=== PATIENT | male | born 1990 | race Caucasian/White ===

== ENCOUNTER 2016-11-23 08:38 | Emergency (ER) | payer SELFPAY ==
[2016-11-23 08:52] VITALS: BP 124/73
[2016-11-23] MEDS ORDERED: Ketorolac 60 MG/2 ML SDV IM ONE (08:58)
--- NOTE | 2016-11-23 09:03 | EDM.PDOC ---
ED HPI GENERAL MEDICAL PROBLEM - General Chief Complaint: Abdominal Pain Stated Complaint: ADM Time Seen by Provider: 11/23/16 08:46 - History of Present Illness INITIAL COMMENTS - FREE TEXT/NARRATIVE: HISTORY AND PHYSICAL: History of present illness: The patient is a healthy 26 y/o who was involved with fire Department training exercises and yesterday was doing an exercise in which he was pulling a rope and doing squatting-like movements in order to pull up a ladder. He states this was approximately 25 pounds and while he was doing this motion he felt a "ripping/tearing-like sensation" in his lower abdominal area radiating to his groin bilaterally. He says that he rested for a while it seemed to be improved and that he continue doing activities and it was never as sharp as when it first started but it has been dull and aching since that time. The patient has had no systemic complaints of fever chills nausea vomiting or urinary complaints. He has no pain in his groin or testicles and no swelling in those areas have been identified. He says that he did not take any medication for the discomfort nor did he ice the area. 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 He currently states that the aching pain in his lower abdomen that radiates to the groin is still present but again he has had no systemic complaints no back pain no neuro changes in his extremities and no weakness. He says when he is sitting or going from lying to sitting he feels more discomfort and he also feels that when he goes into a squatting position. He has not noticed any bruising in the areas either. Review of systems: As per history of present illness and below otherwise all systems reviewed and negative. Past medical history: As per history of present illness and as reviewed below otherwise noncontributory. Surgical history: As per history of present illness and as reviewed below otherwise noncontributory. Social history: No reported history of drug or alcohol abuse. Family history: As per history of present illness and as reviewed below otherwise noncontributory. Physical exam: General: Well-developed well-nourished male who moves easily in ED without distress. Vital signs have been noted by me HEENT: Atraumatic, normocephalic, negative for conjunctival pallor or scleral icterus, mucous membranes moist, throat clear, neck supple, nontender, trachea midline. Lungs: Clear to auscultation, breath sounds equal bilaterally, chest nontender. Heart: S1S2, regular rate and rhythm no overt murmurs. Abdomen: Soft, nondistended, nontender. Negative for masses or hepatosplenomegaly. Negative for costovertebral tenderness. On visual inspection of the abdomen there is no evidence of any swelling ecchymosis or visible abnormalities. The abdomen is completely nontender to palpation and I cannot elicit any tenderness when palpating the abdominal muscle insertions into the pelvis. There is no specific groin tenderness. Pelvis: Stable nontender. Genitourinary: No hernial defects or masses are appreciated on supine exam in there is no inguinal adenopathy swelling or defects in the muscle architecture in this area. Rectal: Deferred. Extremities: Atraumatic, negative for cords or calf pain. Neurovascular unremarkable. There is no discrete tenderness at flexion of the hip both passively and actively and there are no palpable bony deformities throughout the extremities. Neuro: Awake, alert, oriented. Cranial nerves II through XII unremarkable. Cerebellum unremarkable. Motor and sensory unremarkable throughout. Exam nonfocal. Diagnostics: [] Therapeutics: Toradol Impression: abdominal muscle strain Definitive disposition and diagnosis as appropriate pending reevaluation and review of above. Abdominal Pain Score (Numeric/FACES): 1 - Related Data Allergies Allergy/AdvReac Type Severity Reaction Status Date / Time No Known Allergies Allergy Verified 11/23/16 08:46 Home Meds: Home Meds . [No Known Home Meds] 11/23/16 [History] Past Medical History - Past Health History Medical/Surgical History: Denies Medical/Surgical History Social & Family History - Family History Family Medical History: Noncontributory ED ROS GENERAL - Review of Systems Review Of Systems: ROS reveals no pertinent complaints other than HPI. ED EXAM, GENERAL - Physical Exam Exam: See Below (See dictation) Course - Vital Signs Last Recorded V/S: Last Vital Signs Temp 36.6 C 11/23/16 08:49 Pulse 73 11/23/16 08:49 Resp 12 11/23/16 08:49 BP 124/73 11/23/16 08:49 Pulse Ox 97 11/23/16 08:49 - Orders/Labs/Meds Orders: Active Orders 24 hr Category Date Time Status Ketorolac [Toradol] Med 11/23/16 08:58 Once 60 mg IM ONETIME ONE Departure - Departure Time of Disposition: 09:04 Disposition: Home, Self-Care 01 Condition: good Clinical Impression: Strain of abdominal muscle Qualifiers: Encounter type: initial encounter Qualified Code(s): S39.011A - Strain of muscle, fascia and tendon of abdomen, initial encounter - Discharge Information Forms: ED Department Discharge Additional Instructions: The following information is given to patients seen in the emergency department who are being discharged to home. This information is to outline your options for follow-up care. We provide all patients seen in our emergency department with a follow-up referral. The need for follow-up, as well as the timing and circumstances, are variable depending upon the specifics of your emergency department visit. If you don't have a primary care physician on staff, we will provide you with a referral. We always advise you to contact your personal physician following an emergency department visit to inform them of the circumstance of the visit and for follow-up with them and/or the need for any referrals to a consulting specialist. The emergency department will also refer you to a specialist when appropriate. This referral assures that you have the opportunity for followup care with a specialist. All of these measure are taken in an effort to provide you with optimal care, which includes your followup. Under all circumstances we always encourage you to contact your private physician who remains a resource for coordinating your care. When calling for followup care, please make the office aware that this follow-up is from your recent emergency room visit. If for any reason you are refused follow-up, please contact the [facility] emergency department at and ask to speak to the emergency department charge nurse. [facility] Primary care- Internal Medicine and Family [address] [address] Please try to rest the area for at least be more aware of your body motions during certain exercises as we talked. Use ice to areas of discomfort after activities and use medications as prescribed in needed. Please followup with her clinic doctor next few days and return to ER as needed and as discussed - My Orders Last 24 Hours: My Active Orders 11/23/16 08:58 Ketorolac [Toradol] 60 mg IM ONETIME ONE - Assessment/Plan Last 24 Hours: My Active Orders 11/23/16 08:58 Ketorolac [Toradol] 60 mg IM ONETIME ONE
== END 2016-11-23 09:31 | disposition home or self-care (01) ==
LOC: MW.ED 08:38
DX: S39.011A Strain of muscle, fascia and tendon of abdomen, initial encounter (principal); X50.0XXA Overexertion from strenuous movement or load, initial encounter
CPT/HCPCS: 96372; 99283; J1885

== ENCOUNTER 2018-08-20 15:07 | Emergency (ER) | payer OTHER ==
[2018-08-20 15:26] VITALS: BP 142/90
[2018-08-20] MEDS ORDERED: Tetracaine HCl/PF 0.5% 4 ML Bottle EYEBOTH ONE (15:32)
--- NOTE | 2018-08-20 15:34 | EDM.PDOC ---
ED HPI GENERAL MEDICAL PROBLEM - General Chief Complaint: Eye Problems Stated Complaint: EYE INJURY Time Seen by Provider: 08/20/18 15:33 Source of Information: Reports: Patient History Limitations: Reports: No Limitations - History of Present Illness INITIAL COMMENTS - FREE TEXT/NARRATIVE: HISTORY AND PHYSICAL: History of present illness: Patient is a 27-year-old male here with complaint of right eye irritation. He states it started today, has been burning and having tearing. He does wear contacts and put a new pair in this morning. He denies any injury or trauma to the eye. He denies fevers, chills, headache, vomiting, diarrhea. He is otherwise in his usual state of good health with no other complaints at this time. Review of systems: As per history of present illness and below otherwise all systems reviewed and negative. Past medical history: As per history of present illness and as reviewed below otherwise noncontributory. Surgical history: As per history of present illness and as reviewed below otherwise noncontributory. Social history: No reported history of drug or alcohol abuse. Family history: As per history of present illness and as reviewed below otherwise noncontributory. Physical exam: General: Patient sitting comfortably in no acute distress and nontoxic appearing HEENT: Right eye is injected with tearing. There is a small area of increased uptake on woodslamp exam with fluorescein stain at the 12:00 position to the iris. Atraumatic, normocephalic, pupils reactive, negative for conjunctival pallor or scleral icterus, mucous membranes moist, throat clear, neck supple, nontender, trachea midline. No meningeal signs. Lungs: Clear to auscultation, breath sounds equal bilaterally, chest nontender. Heart: S1S2, regular, negative for clicks, rubs, or overt murmur. Abdomen: Soft, nondistended, nontender. Negative for masses or hepatosplenomegaly. Negative for costovertebral tenderness. Pelvis: Stable nontender. Genitourinary: Deferred. Rectal: Deferred. Extremities: Atraumatic, negative for cords or calf pain. Neurovascular unremarkable. Neuro: Awake, alert, oriented. Cranial nerves II through XII unremarkable. Cerebellum unremarkable. Motor and sensory unremarkable throughout. Exam nonfocal. Notes: Diagnostics: Woodslamp exam Therapeutics: Tetracaine ophthalmic Prescriptions: Erythromycin ointment Impression: Corneal abrasion Plan: 1. Apply ointment as instructed. Do not wear contacts until resolved. 2. Follow up with primary care provider 3. Return to ED as needed as discussed Definitive disposition and diagnosis as appropriate pending reevaluation and review of above. - Related Data Allergies Allergy/AdvReac Type Severity Reaction Status Date / Time No Known Allergies Allergy Verified 08/20/18 15:23 Home Meds: Home Meds Erythromycin Base [Erythromycin 0.5% Ophth Oint] 1 applic EYERT BID #1 tube 05/28 [Rx] Past Medical History - Past Health History Medical/Surgical History: Denies Medical/Surgical History - Infectious Disease History Infectious Disease History: Reports: None Social & Family History - Family History Family Medical History: Noncontributory - Tobacco Use Smoking Status *Q: Current Every Day Smoker Years of Tobacco use: 3 Packs/Tins Daily: 1 - Caffeine Use Caffeine Use: Reports: Energy Drinks - Recreational Drug Use Recreational Drug Use: No ED ROS GENERAL - Review of Systems Review Of Systems: ROS reveals no pertinent complaints other than HPI. ED EXAM GENERAL W FULL EYE - Physical Exam Exam: See Below (see dictation) Course - Vital Signs Last Recorded V/S: Last Vital Signs Temp 97.8 F 08/20/18 15:24 Pulse 89 08/20/18 15:24 Resp 16 08/20/18 15:24 BP 142/90 H 08/20/18 15:24 Pulse Ox 97 08/20/18 15:24 - Orders/Labs/Meds Meds: Medications Discontinued Medications Generic Name Dose Route Start Last Admin Trade Name Freq PRN Reason Stop Dose Admin Tetracaine HCl 1 ml 08/20/18 15:32 Tetracaine 0.5% Steri-Unit Danette EYEBOTH 08/20/18 15:33 ASDIRECTED ONE Departure - Departure Time of Disposition: 15:48 Disposition: Home, Self-Care 01 Condition: Good Clinical Impression: Corneal abrasion - Discharge Information Prescriptions: Erythromycin Base [Erythromycin 0.5% Ophth Oint] 1 applic EYERT BID #1 tube Forms: ED Department Discharge Additional Instructions: The following information is given to patients seen in the emergency department who are being discharged to home. This information is to outline your options for follow-up care. We provide all patients seen in our emergency department with a follow-up referral. The need for follow-up, as well as the timing and circumstances, are variable depending upon the specifics of your emergency department visit. If you don't have a primary care physician on staff, we will provide you with a referral. We always advise you to contact your personal physician following an emergency department visit to inform them of the circumstance of the visit and for follow-up with them and/or the need for any referrals to a consulting specialist. The emergency department will also refer you to a specialist when appropriate. This referral assures that you have the opportunity for follow-up care with a specialist. All of these measure are taken in an effort to provide you with optimal care, which includes your follow-up. Under all circumstances we always encourage you to contact your private physician who remains a resource for coordinating your care. When calling for follow-up care, please make the office aware that this follow-up is from your recent emergency room visit. If for any reason you are refused follow-up, please contact the [facility] Emergency Department at and asked to speak to the emergency department charge nurse. [facility] [address] [place] [id number] [address] 1. Apply ointment as instructed. Do not wear contacts until resolved. 2. Follow up with primary care provider 3. Return to ED as needed as discussed
== END 2018-08-20 16:26 | disposition home or self-care (01) ==
LOC: MW.ED 15:07
DX: S05.01XA Injury of conjunctiva and corneal abrasion without foreign body, right eye, initial encounter (principal); F17.210 Nicotine dependence, cigarettes, uncomplicated; X58.XXXA Exposure to other specified factors, initial encounter
CPT/HCPCS: 99283

== ENCOUNTER 2020-02-07 22:37 | Emergency (ER) | payer OTHER ==
[2020-02-07] MEDS ORDERED: Diazepam 5 MG Tab PO ONE (22:45)
[2020-02-07] MEDS ORDERED: Ketorolac 30 MG/ML SDV IVPUSH ONE (22:45)
[2020-02-07] MEDS ORDERED: Sodium Chloride 0.9% 10 ML Syringe FLUSH PRN (22:46)
[2020-02-07] MEDS ORDERED: Sodium Chloride 0.9% 2.5 ML Syringe FLUSH PRN (22:46)
[2020-02-07] MEDS ORDERED: Sodium Chloride 0.9% 1,000 ML IV ONE (22:46)
--- NOTE | 2020-02-07 22:50 | EDM.PDOC ---
ED HPI GENERAL MEDICAL PROBLEM - General Chief Complaint: Genitourinary Problem Stated Complaint: ARRIVED BY EMS Time Seen by Provider: 02/07/20 22:50 - History of Present Illness INITIAL COMMENTS - FREE TEXT/NARRATIVE: History of present illness: [] She had a sudden pain in the left back that radiates now to the left hypogastrium and around to his abdomen. It does not radiate the testicle. It is severe and constant. He says it is associated with muscle spasm. He had a hard back workout today in the gym. He is otherwise healthy. He has a history of a kidney stone when he was 18. He does not have nausea vomiting or d iaphoresis. Review of systems: As per history of present illness and below otherwise all systems reviewed and negative. Past medical history: As per history of present illness and as reviewed below otherwise noncontributory. Surgical history: As per history of present illness and as reviewed below otherwise noncontributory. Social history: No reported history of drug or alcohol abuse. Family history: As per history of present illness and as reviewed below otherwise noncontributory. Physical exam: Constitutional - well developed, well-nourished and in no acute distress HEENT - normocephalic, no evidence of trauma - external nose and mouth normal - no mass in neck and no JVD - mucosae moist EYES - full EOM, PERRL, no icterus - no evidence of inflammation, injection, or drainage Respiratory - no respiratory distress, equal bilateral expansion, lungs clear to auscultation and no abnormal lung sounds Cardiovascular - Regular Rhythm with S1 and S2 appreciated and no murmur, gallop or rub. Peripheral pulses symmetrically normal in all four extremities GI - abdomen soft without distension or organomegaly - normal bowel sounds - no guard or rebound Musculoskeletal actively has some tenderness in the posterior midline of the lower lumbar spine. Straight leg raise is negative. There is no swelling and no palpable muscle spasm at that site. Have any obvious active sign of grimace or face changes consistent with any severe exacerbation of pain. Is concerning for possible visceral cause of his pain. No gross deformity of long bones or joints - no tenderness, swelling or edema Neurologic - Alert and oriented times four - CN II-XII grossly intact - motor sensory and coordination symmetrically normal Psychiatric - appropriate mood and affect with normal thought content Hematologic - No petechiae or purpura - mucosa appropriate color and sclera not pale - normal nail bed color and refill Integument - no rash or evidence of trauma - normal turgor Diagnostics: [] Therapeutics: [] Impression: [] Plan: [] Definitive disposition and diagnosis as appropriate pending reevaluation and review of above. left back Pain Score (Numeric/FACES): 8 - Related Data Allergies Allergy/AdvReac Type Severity Reaction Status Date / Time No Known Allergies Allergy Verified 02/07/20 22:54 Home Meds: Home Meds Escitalopram [Lexapro] 10 mg PO DAILY 02/07/20 [History] diazePAM [Valium] 5 mg PO TID PRN #15 tab 02/07/20 [Rx] lisinopriL [Lisinopril] 5 mg PO DAILY 02/07/20 [History] methylPREDNISolone [Medrol Dose Pack] 4 mg PO DAILY #21 dospk 02/07/20 [Rx] Past Medical History - Past Health History Medical/Surgical History: Denies Medical/Surgical History - Infectious Disease History Infectious Disease History: Reports: None Social & Family History - Family History Family Medical History: Noncontributory - Caffeine Use Caffeine Use: Reports: Energy Drinks ED ROS GENERAL - Review of Systems Review Of Systems: Comprehensive ROS is negative, except as noted in HPI. ED EXAM, GENERAL - Physical Exam Exam: See Below Free Text/Narrative:: My physical exam as in the HPI Course - Vital Signs Text/Narrative:: Patient improved and rapidly in department Last Recorded V/S: Last Vital Signs Temp 96.9 F 02/07/20 22:50 Pulse 96 02/07/20 22:50 Resp 20 02/07/20 22:50 BP 124/73 02/07/20 22:50 Pulse Ox 96 02/07/20 22:50 - Orders/Labs/Meds Orders: Active Orders 24 hr Category Date Time Status Sodium Chloride 0.9% [Saline Flush] Med 02/07/20 22:46 Active 10 ml FLUSH ASDIRECTED PRN Sodium Chloride 0.9% [Saline Flush] Med 02/07/20 22:46 Active 2.5 ml FLUSH ASDIRECTED PRN Saline Lock Insert [OM.PC] Stat Oth 02/07/20 22:46 Ordered Medication Orders Sodium Chloride (Saline Flush) 10 ml FLUSH ASDIRECTED PRN PRN Reason: Keep Vein Open Sodium Chloride (Saline Flush) 2.5 ml FLUSH ASDIRECTED PRN PRN Reason: Keep Vein Open Labs: Laboratory Tests 02/07/20 02/07/20 02/07/20 Range/Units 22:40 22:45 22:45 WBC 8.38 (4.0-11.0) K/uL RBC 4.39 L (4.50-5.90) M/uL Hgb 13.0 (13.0-17.0) g/dL Hct 39.4 (38.0-50.0) % MCV 89.7 (80.0-98.0) fL MCH 29.6 (27.0-32.0) pg MCHC 33.0 (31.0-37.0) g/dL RDW Std Deviation 43.3 (28.0-62.0) fl RDW Coeff of Dg 13 (11.0-15.0) % Plt Count 286 (150-400) K/uL MPV 9.20 (7.40-12.00) fL Neut % (Auto) 48.7 (48.0-80.0) % Lymph % (Auto) 41.8 H (16.0-40.0) % [place] % (Auto) 7.5 (0.0-15.0) % Eos % (Auto) 1.8 (0.0-7.0) % Baso % (Auto) 0.2 (0.0-1.5) % Neut # (Auto) 4.1 (1.4-5.7) K/uL Lymph # (Auto) 3.5 H (0.6-2.4) K/uL [place] # (Auto) 0.6 (0.0-0.8) K/uL Eos # (Auto) 0.2 (0.0-0.7) K/uL Baso # (Auto) 0.0 (0.0-0.1) K/uL Nucleated RBC % 0.0 /100WBC Nucleated RBCs # 0 K/uL Sodium 140 (136-148) mmol/L Potassium 3.5 (3.5-5.1) mmol/L Chloride 103 (98-107) mmol/L Carbon Dioxide 26.7 (21.0-32.0) mmol/L BUN 14 (7.0-18.0) mg/dL Creatinine 1.3 (0.8-1.3) mg/dL Est Cr Clr Drug Dosing 90.10 mL/min Estimated GFR (MDRD) > 60.0 ml/min Glucose 87 (74-106) mg/dL Calcium 8.7 (8.5-10.1) mg/dL Urine Color YELLOW Urine Appearance CLEAR Urine pH 6.5 (5.0-8.0) Ur Specific [place] 1.020 (1.001-1.035) Urine Protein NEGATIVE (NEGATIVE) mg/dL Urine Glucose (UA) NEGATIVE (NEGATIVE) mg/dL Urine Ketones NEGATIVE (NEGATIVE) mg/dL Urine Occult Blood NEGATIVE (NEGATIVE) Urine Nitrite NEGATIVE (NEGATIVE) Urine Bilirubin NEGATIVE (NEGATIVE) Urine Urobilinogen 0.2 (<2.0) EU/dL Ur Leukocyte Esterase NEGATIVE (NEGATIVE) Meds: Medications Generic Name Dose Route Start Last Admin Trade Name Freq PRN Reason Stop Dose Admin Sodium Chloride 10 ml 02/07/20 22:46 Saline Flush FLUSH ASDIRECTED PRN Keep Vein Open Sodium Chloride 2.5 ml 02/07/20 22:46 Saline Flush FLUSH ASDIRECTED PRN Keep Vein Open Discontinued Medications Generic Name Dose Route Start Last Admin Trade Name Freq PRN Reason Stop Dose Admin Diazepam 5 mg 02/07/20 22:45 02/07/20 22:56 Valium. PO 02/07/20 22:46 5 mg ONETIME ONE Administration Sodium Chloride 1,000 mls @ 999 mls/hr 02/07/20 22:46 02/07/20 22:54 Normal Saline IV 02/07/20 23:46 999 mls/hr .BOLUS ONE Administration Ketorolac Tromethamine 15 mg 02/07/20 22:45 02/07/20 22:54 Toradol IVPUSH 02/07/20 22:46 15 mg ONETIME ONE Administration Departure - Departure Time of Disposition: 23:47 Disposition: Home, Self-Care 01 Condition: Good Clinical Impression: Strain of lumbar paraspinal muscle - Discharge Information Prescriptions: methylPREDNISolone [Medrol Dose Pack] 4 mg PO DAILY #21 dospk diazePAM [Valium] 5 mg PO TID PRN #15 tab PRN Reason: Headache Instructions: Lumbar Sprain Referrals: PCP,None [Ordering Only Provider] - Forms: ED Department Discharge Additional Instructions: The following information is given to patients seen in the emergency department who are being discharged to home. This information is to outline your options for follow-up care. We provide all patients seen in our emergency department with a follow-up referral. The need for follow-up, as well as the timing and circumstances, are variable depending upon the specifics of your emergency department visit. If you don't have a primary care physician on staff, we will provide you with a referral. We always advise you to contact your personal physician following an emergency department visit to inform them of the circumstance of the visit and for follow-up with them and/or the need for any referrals to a consulting specialist. The emergency department will also refer you to a specialist when appropriate. This referral assures that you have the opportunity for follow-up care with a specialist. All of these measure are taken in an effort to provide you with optimal care, which includes your follow-up. Under all circumstances we always encourage you to contact your private physician who remains a resource for coordinating your care. When calling for follow-up care, please make the office aware that this follow-up is from your recent emergency room visit. If for any reason you are refused follow-up, please contact the [facility] Emergency Department at and asked to speak to the emergency department charge nurse. [facility] Professional Building [address] [place] [address], [address] [place] [address] [facility] - Primary [facility] [address] [place] [id number] [address] Sepsis Event Note (ED) - Focused Exam Vital Signs: Vital Signs Temp Pulse Resp BP Pulse Ox 02/07/20 22:50 96.9 F 96 20 124/73 96 - My Orders Last 24 Hours: My Active Orders 02/07/20 22:46 Sodium Chloride 0.9% [Saline Flush] 10 ml FLUSH ASDIRECTED PRN Sodium Chloride 0.9% [Saline Flush] 2.5 ml FLUSH ASDIRECTED PRN Saline Lock Insert [OM.PC] Stat - Assessment/Plan Last 24 Hours: My Active Orders 02/07/20 22:46 Sodium Chloride 0.9% [Saline Flush] 10 ml FLUSH ASDIRECTED PRN Sodium Chloride 0.9% [Saline Flush] 2.5 ml FLUSH ASDIRECTED PRN Saline Lock Insert [OM.PC] Stat
[2020-02-07 23:17] LABS: BLOOD UREA NITROGEN,BUN 14 mg/dL (7.0-18.0); CARBON DIOXIDE,CO2 26.7 mmol/L (21.0-32.0); CHLORIDE,CL 103 mmol/L (98-107); GLUCOSE RANDOM 87 mg/dL (74-106); POTASSIUM,K 3.5 mmol/L (3.5-5.1); SODIUM,NA 140 mmol/L (136-148)
[2020-02-08 00:24] VITALS: BP 125/58; PULSE 66
== END 2020-02-08 00:26 | disposition home or self-care (01) ==
LOC: MW.ED 22:37
DX: S39.012A Strain of muscle, fascia and tendon of lower back, initial encounter (principal); Z79.899 Other long term (current) drug therapy; X58.XXXA Exposure to other specified factors, initial encounter
CPT/HCPCS: 36415; 80048; 81003; 85025; 96374; 99284; A9270; J1885; J7030

== ENCOUNTER 2021-07-13 15:42 | Emergency (ER) | payer OTHER ==
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
[2021-07-13] MEDS ORDERED: Diphtheria,Pertussis(Acell),Tetanus Vaccine 0.5 ML Syringe IM ONE (18:00)
[2021-07-13 18:27] VITALS: BP 121/61; PULSE 77
== END 2021-07-13 18:16 | disposition home or self-care (01) ==
LOC: MW.ED 15:42
DX: T33.011A Superficial frostbite of right ear, initial encounter (principal); I10 Essential (primary) hypertension; Z23 Encounter for immunization; Z79.899 Other long term (current) drug therapy; Z72.0 Tobacco use; X31.XXXA Exposure to excessive natural cold, initial encounter
CPT/HCPCS: 90471; 90715; 99282

== ENCOUNTER 2021-07-22 23:02 | Emergency (ER) | payer OTHER ==
[2021-07-23 00:21] VITALS: BP 121/60; PULSE 89
== END 2021-07-23 00:22 | disposition home or self-care (01) ==
LOC: MW.ED 23:02
DX: S80.12XA Contusion of left lower leg, initial encounter (principal); I10 Essential (primary) hypertension; Z79.899 Other long term (current) drug therapy; W00.0XXA Fall on same level due to ice and snow, initial encounter
CPT/HCPCS: 73590-26-LT; 73590-LT; 99283-25

== ENCOUNTER 2021-12-09 09:51 | Emergency (ER) | payer OTHER ==
[2021-12-09] MEDS ORDERED: Ibuprofen 600 MG Tab PO ONE (10:07)
[2021-12-09] MEDS ORDERED: Acetaminophen 500 MG Tab PO ONE (10:07)
[2021-12-09 11:16] VITALS: BP 126/80; PULSE 80
== END 2021-12-09 11:17 | disposition home or self-care (01) ==
LOC: MW.ED 09:51
DX: S93.401A Sprain of unspecified ligament of right ankle, initial encounter (principal); I10 Essential (primary) hypertension; Z79.899 Other long term (current) drug therapy; W18.40XA Slipping, tripping and stumbling without falling, unspecified, initial encounter
CPT/HCPCS: 73610; 99283; A9270; 99282

== ENCOUNTER 2023-04-26 06:18 | Emergency (ER) | payer OTHER ==
[2023-04-26] MEDS ORDERED: Ibuprofen 600 MG Tab PO ONE (06:35)
[2023-04-26 08:07] VITALS: BP 136/78; PULSE 84
== END 2023-04-26 08:06 | disposition home or self-care (01) ==
LOC: MW.ED 06:18
DX: S93.401A Sprain of unspecified ligament of right ankle, initial encounter (principal); S93.601A Unspecified sprain of right foot, initial encounter; I10 Essential (primary) hypertension; Z79.899 Other long term (current) drug therapy; X50.1XXA Overexertion from prolonged static or awkward postures, initial encounter
CPT/HCPCS: 73610; 73620; 99283; A9270

== ENCOUNTER 2024-05-27 06:16 | Emergency (ER) | payer OTHER ==
[2024-05-27 06:26] VITALS: BP 133/86; PULSE 89
[2024-05-27] MEDS: Tetracaine HCl/PF 0.5% 4 ML Bottle EYEBOTH ONE (06:26)
[2024-05-27] MEDS: Fluorescein 1 MG Ophth Strip EYEBOTH ONE (06:40)
[2024-05-27] MEDS: Fluorescein 1 MG Ophth Strip EYELF ONE (06:44)
[2024-05-27] MEDS: Fluorescein 1 MG Ophth Strip ONE (06:44)
== END 2024-05-27 06:54 | disposition home or self-care (01) ==
LOC: MW.ED 06:16
DX: H10.32 Unspecified acute conjunctivitis, left eye (principal); I10 Essential (primary) hypertension
CPT/HCPCS: 99283; J3490

== ENCOUNTER 2024-12-03 09:11 | Emergency (ER) | payer SELFPAY ==
[2024-12-03] MEDS: Orphenadrine 60 MG/2 ML Inj IM ONE (10:55)
[2024-12-03] MEDS: methylPREDNISolone Sodium Succinate 40 MG/1 ML SDV IM ONE (10:56)
[2024-12-03] MEDS: Lidocaine 4% Patch TOP ONE (10:56)
[2024-12-03 12:10] VITALS: BP 144/79; PULSE 82
[2024-12-03] MEDS: Acetaminophen/oxyCODONE 325-10 MG Tab PO ONE (12:38)
== END 2024-12-03 13:39 | disposition home or self-care (01) ==
LOC: MW.ED 09:11
DX: M54.50 Low back pain, unspecified (principal); G89.29 Other chronic pain; I10 Essential (primary) hypertension
CPT/HCPCS: 72100; 96372; 99283; A9270; J2360; J2919